=== PATIENT | male | born 1960 | race Caucasian/White ===

== ENCOUNTER → 2017-02-11 | Day surgery (SDC) | payer OTHER ==
[~2017-02-11] MED LIST: CARV25TA PO; GLYCOPYRROLATE 1 MG/5 ML VIAL. ONE; HYDROmorphone 2 MG/ML VIAL IV PRN; IV RINGERS,LACTATED 1000ML 1,000 ML IV SCH; LIDOCAINE 1% 1 ML SYRINGE. ID PRN; LIDOCAINE 2% PF Vial for OR 5 ML VIAL. ONE; MORPHINE SULFATE 2 MG/ML DISP.SYRIN. IV PRN; OMEG1CAP28 PO; ONDANSETRON PF 4 MG/2 ML VIAL. IV PRN; POTA20TA4 PO; PROCHLORPERAZINE 10 MG/2 ML VIAL. IV PRN; PROPOFOL 20 ML IV ONE; TRIA1CAP3 PO; ePHEDrine PF IN SALINE 50 MG/5 ML DISP.SYRIN IV ONE; fentaNYL PF VIAL 100 MCG/2 ML VIAL IV PRN
--- NOTE | 2017-02-11 08:35 | PDOC1 ---
HISTORY & PHYSICAL H&P Leonardo Martinez [id number] 1960 01/08/2017 04:00 PM 07/[address] [facility], [facility] OUR PATIENTS COME FIRST [address] [place] [address]. [phone] Patient: Leonardo Martinez Date of : 1960 Date: 01/08/2017 4:00 PM Visit Type: Consult This 56 year old male presents for H/o colorectal polyp. History of Present Illness: 1. H/o colorectal polyp Prior screening: colonoscopy. Risk Factors: h/o colon polyp. Pertinent negatives include abdominal pain, change in bowel habits, change in stool caliber, constipation, decreased appetite, diarrhea, melena, nausea, rectal bleeding, vomiting, weight gain and weight loss. Additional information: No family history of colon cancer, No family history of Crohn's/colitis and No NSAID/ASA use. INTAKE COMMENTS: Intake Comments: Nurse Note: the pt is here today to schedule a colonoscopy due to a h/o colon polyps. The pt states his last one was about 5 years ago. PROBLEM LIST: Problem Description Onset Date Chronic Notes Hypertension 01/08/2017 Y PAST MEDICAL/SURGICAL HISTORY (Detailed) Disease/disorder Onset Date Management Date Comments Spinal surgery 2014 Hypertension Medications (Active): Started Medication Directions Instruction Stopped Coreg take 1 tablet by oral route 2 times every day with food Dyazide 37.5 mg-25 mg capsule take 1 capsule by oral route every day Fish Oil take 3 Tablet by Oral route every day KLOR-CON take 1 packet by oral route 2 times every day dissolved in 4-6 ounces of cold water or juice Allergies: Ingredient Reaction Medication Name Comment NO KNOWN ALLERGIES REVIEW OF SYSTEMS System Neg/Pos Details Constitutional Negative Chills, fever, malaise, weight gain and weight loss. ENMT Negative Sore throat. Eyes Negative Double vision. Respiratory Negative Dyspnea and wheezing. Cardio Negative Chest pain and irregular heartbeat/palpitations. GI Positive See HPI. GI Negative Abdominal pain, change in bowel habits, change in stool caliber, constipation, decreased appetite, diarrhea, melena, nausea, see HPI, rectal bleeding and vomiting. Negative Dysuria and hematuria. Endocrine Negative Cold intolerance and heat intolerance. Psych Negative Anxiety. Integumentary Negative Hives and rash. MS Negative Joint pain. Jamar/Lymph Negative Easy bleeding and easy bruising. Allergic/Immuno Negative Food allergies. VITAL SIGNS Time BP mm/Hg Pulse /min Resp /min Temp F Ht ft Ht in Ht cm Wt lb Wt kg BMI kg/ m2 BSA m2 O2 Sat% 3:42 PM 180/100 106 97.9 5.0 8.00 172.72 206.40 93.621 31.38 94 Time Comments 3:42 PM Pt states it is normal for him to have an elevated BP at doctor's office. He states it normally runs 130/80 Time Measured by 3:42 PM Lenore Anna PHYSICAL EXAM: Exam Findings Details Constitutional Normal Well developed. Eyes Normal Conjunctiva - Right: Normal, Left: Normal. Sclera - Right: Normal, Left: Normal. Nasopharynx Normal Lips/teeth/gums - Normal. Neck Exam Normal Inspection - Normal. Thyroid gland - Normal. Respiratory Normal Inspection - Normal. Auscultation - Normal. Cardiovascular Normal Regular rate and rhythm. No murmurs, gallops, or rubs. Vascular Normal Pulses - Carotids: Normal, Femoral: Normal, Dorsalis pedis: Normal. Abdomen Normal Inspection - Normal. Anterior palpation - No guarding. No abdominal tenderness. No hepatic enlargement. No splenic enlargement. No hernia. No ascites. Skin Normal Inspection - Normal. Extremity Normal No edema. Psychiatric * Oriented to time, place, person and situation. Psychiatric Normal Appropriate mood and effect. Assessment/Plan # Detail Type Description 1. Assessment History of colon polyps (Z86.010). [place] [facility] [place] Further diagnostic evaluations ordered today include(s) Colonoscopy to be performed today. He is to schedule a follow-up visit with Vern Monsalve MD upon completion of work-up Electronically signed by: Vern Monsalve MD 01/08/2017 03:48 PM Document generated by: Vern Monsalve 01/08/2017 03:48 PM Kenroy Yanes MD, Family Practice; Tha Ann MD Internal Medicine; Steffi Ewing MD, Internal Medicine; Lisa Monsalve MD Internal Medicine; Vern Monsalve MD, Gastroenterology; Bill Steve MD, Rheumatology, S. Clint Hurst, Physical Medicine/Rehab Mukund Mcgregor APRN ------ 02/11/17 Patient seen and examined. No change in H&P. VERN MONSALVE MD Feb 11, 2017 08:35
[2017-02-11 09:29] VITALS: BP 146/90
--- NOTE | 2017-02-12 16:33 | PATHOLOGY ---
PATHOLOGY REPORT * * * * * * * * FINAL DIAGNOSIS: Colorectal biopsy, rectal polyp: - Tubular adenoma. COMMENT: There is no high-grade dysplasia or evidence of malignancy. (JPM:pit; 02/12/2017) REPORT ELECTRONICALLY SIGNED BY: Carlin Falcon M.D. DATE/TIME: 02/12/2017 16:32 * * * * * * * * GROSS PATHOLOGY: Received in formalin labeled "Leonardo Martinez, rectal polyp," is a 0.8 x 0.6 x 0.4 cm polypoid piece of bustillo soft tissue. The specimen is submitted in its entirety in cassette A1. (JPM; 02/11/17) INITIAL CPT CODE(S): A; 20045 Professional services performed [place] [facility] [address] Technical services performed by [facility] at [address] [place] [address]. SPECIMEN(S) RECEIVED: A.Rectal polyp CLINICAL HISTORY: History of colon polyps PATIENT: LEONARDO MARTINEZ /AGE: 1 1960 (Age: 56) PATIENT #: [id number] ALT CASE #: SPECIMEN COLLECTION DATE: 02/11/2017 SPECIMEN RECEIVED DATE: 02/11/2017 [facility] - [address] [place] [address] - PHONE: [phone] * * * END OF REPORT * * *
== END | disposition home or self-care (01) ==
LOC: ENDOS 07:28
PROVIDERS: ATTEND Internal Medicine Gastroenterology
DX: Z09 Encounter for follow-up examination after completed treatment for conditions other than malignant neoplasm (principal); Z87.19 Personal history of other diseases of the digestive system; K62.1 Rectal polyp; K64.1 Second degree hemorrhoids; I10 Essential (primary) hypertension; F17.200 Nicotine dependence, unspecified, uncomplicated; Z86.69 Personal history of other diseases of the nervous system and sense organs
CPT/HCPCS: 45385; 88305; J2001; J2704; J3490